=== PATIENT | female | born 1970 | race Caucasian/White ===

== ENCOUNTER → 2018-08-11 16:51 | Outpatient (CLI) | payer OTHER, SELFPAY ==
--- NOTE | 2018-08-11 16:53 | MRI_ITS ---
STUDY: MRI LEFT KNEE REASON FOR EXAM: Pain when kneeling, anterior mass. TECHNIQUE: Standardized fat and water weighted pulse sequences were obtained in all 3 orthogonal planes. COMPARISON: Radiographs 01/07/2016. FINDINGS: Normal medial meniscus. Normal hyaline cartilage of the medial femorotibial compartment. Normal medial femoral condyle and tibial plateau. Normal medial collateral ligamentous complex (MCL). Normal distal semimembranosus, gracilis and semitendinosus tendons. Normal lateral meniscus. Normal hyaline cartilage of the lateral femorotibial compartment. Normal lateral femoral condyle and tibial plateau. Normal proximal tibiofibular articulation. Normal lateral collateral (fibular) ligament. Normal popliteus tendon. Normal biceps femoris tendon. Normal anterior cruciate ligament (ACL). Normal posterior cruciate ligament (PCL). Normal congruent patellofemoral articulation. Normal hyaline cartilage of the patellofemoral compartment. There is a subchondral cyst of the lateral patellar facet (T2 axial image 11). Normal medial and lateral patellar retinaculum. Normal quadriceps tendon. Normal patellar tendon. Normal Hoffa's fat pad. There is no joint effusion. There is a well-defined soft tissue mass at the anterolateral aspect of the distal patellar tendon measuring 0.5 x 1.7 x 2.3 cm (AP x transverse x length). The mass is moderately hyperintense on T2 sequences (T2 coronal images 24, 25; T2 axial images 18-20; T2 sagittal images 15-17) and mildly hyperintense on proton density sequences (proton-density sagittal images 26-29) without specific imaging characteristics. The otherwise visualized osseous structures are unremarkable. MRI/Lower Ext Joint Only (Routine) IMPRESSION: Well-defined soft tissue mass superficial to the distal patellar tendon without specific imaging characteristics. Electronically Signed: Floyd Baez MD at 9:10 EDT Tel , Service support ,
== END ==
PROVIDERS: Family Provider Internal Medicine; PCP Internal Medicine; Visit Provider Orthopaedic Surgery
DX: M23.007 Cystic meniscus, unspecified meniscus, left knee (principal)
CPT/HCPCS: 73721

== ENCOUNTER 2018-09-23 13:38 | Day surgery (SDC) | payer OTHER, SELFPAY ==
--- NOTE | 2018-09-23 | IMM_PTH ---
PATIENT: JAIR STUART LOC: [facility] [place] U#:[id number] AGE/SX: 47/F ROOM: RE09/23/[address]: Dr. Sherrie Pratt DO : 1970 BED: DIS: 09/23/2018 SPEC #: [id number] RECD: 09/27/18 13:35 STATUS: TORRES REYola #: [id number] JOSE: 09/23/18 00:[address]: Sherrie Pratt DEPT: IMMUNOHISTOCHEMISTRY RECD BY: Oliva Woods ENTERED: 09/27/18 13:36 SP TYPE: IMMUNO OTHR DR: Dr. Jennie Pruett MD Tissues: Patella, NOS Procedures: DESMIN (initial) SMA (add) CD31 (add) CD34 (add) Vimentin (add) FACTOR VIII (add) PHYSICIAN & INSTITUTION [place] [id number] SPECIMEN INFORMATION: Tissue Source: Left patella hemorrhagic cyst Clinical Info: Left patella cyst Specimen Number: [id number] CPT code: 20116, 54326 x5 METHODOLOGY: Deparaffinized sections of prefer/formalin-fixed tissue or PAP/DQ stained slides are incubated with monoclonal/polyclonal antibodies/oligonucleotide probes. Localization is made via biotin free immunoperoxidase method. Appropriate controls are performed and reacted as expected. Results on target cell population are indicated in the following table: RESULTS: ANTIBODY / CLONE RESULT Actin (1A4) positive Desmin (CE-R-11) positive Vimentin (V9) positive CD31 (LINA/70A) positive ( in blood vessels) CD34 (QBEnd-10) positive ( in blood vessels) Factor VIII (R Ag) positive ( in blood vessels) These tests were developed and their performance characteristics determined by [facility]. They may not have been cleared or approved by the U.S. Food and Drug Administration. The FDA has determined that such clearance or approval is not necessary. INTERPRETATION: Left patella hemorrhagic cyst: Angioleiomyoma. SJ:jacoby 09/28/18 Case has been reviewed in consultation with Dr. Simpson who concurs with the above diagnosis. IDC:HARINI
[2018-09-23 14:02] VITALS: BP 114/65; PULSE 69; RESP 16; TEMP 37.8; O2SAT 100; BMI 20.7
[2018-09-23] MEDS: Cefazolin 2 GM in 0.9% Normal Saline 100 ML IV (15:00)
--- NOTE | 2018-09-23 15:00 | CYST_PTH ---
PATIENT: JAIR STUART LOC: [facility] [place] U#:[id number] AGE/SX: 47/F ROOM: RE09/23/[address]: Dr. Sherrie Pratt DO : 1970 BED: DIS: 09/23/2018 SPEC #: [id number] RECD: 09/26/18 08:17 STATUS: TORRES MONA #: [id number] JOSE: 09/23/18 15:[address]: Sherrie Pratt DEPT: SURGICAL PATHOLOGY RECD BY: Stefano Quinones ENTERED: 09/26/18 10:10 SP TYPE: Cyst OTHR DR: Dr. Jennie Pruett MD Tissues: Patella, NOS Procedures: Surgery Specimen Level IV HEADER OPERATION: Excision cyst patella PRE-OP DIAGNOSIS: Left patella cyst TISSUE SUBMITTED: Left patella hemorrhagic cyst MICROSCOPIC DIAGNOSIS Left patellar hemorrhagic cyst, biopsy: Consistent with angioleiomyoma. See comment. THANIA:jacoby 09/27/18 COMMENT Immunohistochemistry ([id number]) supports the above diagnosis. Case has been reviewed in consultation with Dr. Simpson who concurs with the above diagnosis. IDC:AM MICROSCOPIC DESCRIPTION Slides are reviewed. GROSS DESCRIPTION Received in fixative is one container labeled with the patient's name and designated left patellar hemorrhagic cyst. The specimen consists of a piece of naik nodule measuring 2 x 2 x 0.5 cm. The specimen is inked, serially sectioned and reveals naik solid cut surfaces. The entire specimen is submitted in one cassette. / SJ:jacoby 09/26/18 TC:1 CPT: 36954
--- NOTE | 2018-09-23 15:12 | PCM.DC.ORTHO ---
Discharge Diet: No Restrictions - may remove dressing and apply new dressings in 4 days, may get incision wet after pod4, wbat left leg, follow up in 2 wks for suture removal, call with concerns Discharge Activity: May Not Drive May shower in (days): 1 Ice area for (Minutes): 20 - Every hour while awake. Weight Bearing Status: Weight bearing as tolerated Keep extremity elevated above heart level: Operative Extremity Call your doctor if your incision/area has: Continuous Slow Oozing, Sudden Increased Bleeding, Increased Pain/ Swelling, Increased Redness, Foul Smelling Discharge Call your doctor if you observe: Fever of 101 or Higher, Coldness, Increased Pain, Numbness or Tingling, Change in Color, Calf discomfort Allergies/Adverse Reactions: Allergies meperidine [From Demerol] Adverse Reaction (Verified 09/08/18 12:26) Other MIGRANES Medications to take at Discharge Escitalopram Oxalate [Lexapro] 10 mg PO DAILY 09/08/18 Hydrocodone Bitart/Apap 5-325 [[place] 5MG-325MG] 1 - 2 tablet PO Q6H PRN PRN 5 Days #40 tablet 09/23/18 The following prescriptions were given: Hydrocodone Bitart/Apap 5-325 [[place] 5MG-325MG] 1 - 2 tablet PO Q6H PRN PRN 5 Days #40 tablet PRN Reason: Pain Primary Care Physician: Jennie Pruett MD [Primary Care Provider] - Test Results: Test results from this visit will be discussed in further detail at your follow-up appointment, if applicable. Please Follow Up With: Sherrie Pratt, DO - [phone]
--- NOTE | 2018-09-23 15:13 | OP.PCM_ITS ---
Report of Operation Date of Procedure: 09/23/18 Pre-Operative Diagnosis: left parapatellar anterior mass Post-Operative Diagnosis: same Surgery/Procedure Performed:: left parapatella hemorrhagic cyst excision foundry tender: Abe Mancini Type of Anesthesia:: General Anesthesiologist: Antwon Rey Specimen's removed: hemorrhagic cyst Estimated Blood Loss (mL): none Fluids Replaced: 500cc LR Description of Procedure: Preoperative note Patient is a 47-year-old female with a painful anterior mass which is going on for quite some time. We did an ultrasound and MRI confirming this looks like a cystic formation just anterior to patella tendon no aggressive features with the lesion. Risks benefits and alternatives surgery were discussed with patient. Risks include but not limited to blood loss, blood clot, infection, neurovascular injury, failure procedure, loss of life and loss of limb. Patient is aware would like to proceed with left anterior mass excision repair is indicated. Operative note Patient seen and examined preoperative holding area. Left knee was marked. Patient brought to the operating room and placed supine on the operating room table. Sign, anesthesia, antibiotics were administered. All bony prominences well-padded SCDs placed on her contralateral limb. The left leg was prepped and draped in usual sterile fashion with tourniquet around her upper thigh. We then marked out our incision for the palpable anterior cyst that is just distal to the inferior pole. We then elevated exsanguinated the leg and tourniquet was raised her pressure of 250 torr. Timeout was performed. We then used a 15 blade to cut through the skin directly on top of the cyst a little bit medial dislocation the patient would ever need a total knee in the future. We then dissected down with tenotomy syllable of the cyst. We then used a Bovie in maintaining hemostasis throughout the entire case to then retrieve the hemorrhagic cyst and it went in its entirety. There was no aggressive features that did not extend past or through the patella tendon there are no associated cysts or masses associated with this this 1 hemorrhagic cyst which was excessive was excised in its entirety. The mass measured about 2 x 1 cm. We sent to pathology for further evaluation. We then inspected again inspected the patella tendon and the other structures in that there is nothing for the left there was not we irrigated the the incision with copious amounts of sterile saline the garcia bcuticular layer was closed with 2-0 Vicryl and the skin was closed with running 4-0 Monocryl sterile dressings were applied. Tourniquet was deflated for total working time of 22 minutes. Patient tolerated procedure well there are no comp occasions transferred to recovery room in stable condition. Next Postoperative note Weight-bear as tolerated left leg next Call with increased pain numbness tingling or further issues arise Pharmacy has prescription Gas doing ankle pumps ice elevating and risk for blood clots and what to look for and to call if there is any concerns Dragon disclaimer this note was generated with [employer] dictation software. It may contain incorrect words, spelling, and punctuation that were not noted in checking the note before signing.
[2018-09-23] MEDS: Mupirocin Ointment 22gm Tube 1 APPLIC (15:40)
[2018-09-23 15:55] VITALS: BP 114/65; BP 132/86; PULSE 83; RESP 16; TEMP 36.4; O2SAT 100
[2018-09-23 16:00] VITALS: BP 114/65; BP 122/75; PULSE 83; RESP 16; O2SAT 100
[2018-09-23 16:15] VITALS: BP 114/65; BP 117/73; PULSE 79; RESP 16; TEMP 36.6; O2SAT 100
[2018-09-23] MEDS: HYDROcodone Bitartrate/Apap 5/325 Tablet PO (17:00)
[2018-09-23 17:51] VITALS: BP 105/67; BP 114/65; PULSE 82; RESP 18; TEMP 36.9; O2SAT 100
== END 2018-09-23 17:56 | disposition home or self-care (01) ==
LOC: SDC 13:38 → AC 13:39
PROVIDERS: Family Provider Internal Medicine; PCP Internal Medicine; Referring Provider Orthopaedic Surgery; Visit Provider Orthopaedic Surgery
PROC: (CPT 11402; principal; 2018-09-23 14:45)
DX: D36.7 Benign neoplasm of other specified sites (principal); F41.9 Anxiety disorder, unspecified; Z78.0 Asymptomatic menopausal state; Z79.899 Other long term (current) drug therapy
CPT/HCPCS: 11402; 12031; 88304; 88305; 88341; 88342; J7120; J2405

== ENCOUNTER → 2020-06-26 17:51 | Outpatient (CLI) | payer OTHER, SELFPAY | PROVIDERS: PCP Family Medicine; Referring Provider Family Medicine; Visit Provider Family Medicine | DX: U07.1 COVID-19 (principal); Z20.828 Contact with and (suspected) exposure to other viral communicable diseases | CPT/HCPCS: 87635; 94799; C9803; U0003 ==

== ENCOUNTER 2021-06-17 06:20 | Day surgery (SDC) | payer OTHER, SELFPAY ==
[2021-06-17] VITALS (8 sets, daily range): BP systolic 102–138; BP diastolic 31–90; PULSE 16–87; RESP 16–18; TEMP 36.1–36.9; O2SAT 100; BMI 19.8
[2021-06-17] MEDS: Lactated Ringers 1,000 ML 100 ML IV (06:35)
--- NOTE | 2021-06-17 06:46 | PCM.HP.STD ---
HPI - General HPI Narrative JAIR STUART, is a 50 F who presents for screening colonoscopy today. She has not had any previous ones. She denies any bright red blood per rectum or melena. She states she otherwise enjoys good health. She did get nauseated with placement of the IV. [facility] Medical History (Updated 06/17/21 @ 06:[address] Robert Snow MD) Anxiety Hx of cyst of breast Leg cramps Migraine headache Post-menopausal Wears contact lenses Wears glasses Home Medications escitalopram oxalate [Lexapro] 5 mg PO DAILY 09/08/18 [History Last Taken 09/22/18] Allergy/AdvReac Type Severity Reaction Status Date / Time meperidine [From Demerol] AdvReac Other Verified 06/17/21 06:34 Surgical History (Updated 06/13/21 @ 11:28 by Radha Morgan) h/o patellar cyst excision Hx of dilation and curettage Social History (Updated 11/07/18 @ 09:26 by Abe HUSTON, PA) Smoking Status: Never smoker ROS Constitutional Constitutional: Reports systems reviewed and no addt'l complaints, except as documented Cardiovascular Cardiovascular: Denies chest pain Respiratory/Chest Respiratory/Chest: Denies shortness of breath at rest Gastrointestinal Gastrointestinal: Denies abdominal pain, change in bowel habits, hematochezia or melena Physical Exam Const alert, oriented x3 and no apparent distress General Appearance: cooperative and comfortable Eyes General Eye: normal appearance of both eyes Neck General: normal visual inspection Chest inspection of chest normal Resp Effort and Inspection: able to speak in complete sentences and symmetric chest movement Auscultation: clear to auscultation bilaterally Cardio regular rate and regular rhythm GI soft to palpation, non-tender and non-distended Extremity no calf tenderness Neuro oriented x3 Psych thought process normal Assessment & Plan Assessment/Plan (1) Screening for intestinal cancer: PLAN: Plan to proceed with a screening colonoscopy with possible biopsy or polypectomy as indicated. She is aware of the technique, benefit, risk, alternatives. She has had an opportunity to ask and have questions answered. She presents via open access today. We will proceed as indicated. Robert Snow M.D., F.A.C.S.
[2021-06-17] MEDS: Ondansetron 4 MG/2 ML Vial (07:25)
[2021-06-17] MEDS: Midazolam 5 MG/ML Syringe (07:27)
[2021-06-17] MEDS: fentaNYL 100 MCG/2 ML Ampul ×2 (07:27→07:35)
--- NOTE | 2021-06-17 07:51 | OP.CCLET_ITS ---
06/17/2021 Jorge Elizondo Re : Colonoscopy procedure for Ana Paula Davis Dear Caro This procedure was performed on Thursday, June 17, 2021. My impressions and recommendations are as follows: Impressions : - Diverticulosis in the sigmoid colon and in the descending colon. - The examination was otherwise normal. - No specimens collected. Recommendations : - Discharge patient to home. - Resume previous diet. - Continue present medications. - Repeat colonoscopy in 10 years for screening purposes. My findings are described in the full procedure note, which is enclosed. If I can be of further assistance, please feel free to contact me at Doctor phone number(s): Work: . Sincerely, Robert Snow MD 06/17/2021 7:51:07 AM This report has been signed electronically.
--- NOTE | 2021-06-17 07:51 | OP.COLON_ITS ---
Patient Name: Ana Paula Davis Procedure Date: 06/17/2021 7:23 AM Date of : 1970 Age: 50 Procedure: Colonoscopy Indications: Screening for colorectal malignant neoplasm Providers: Robert Snow MD Medicines: Midazolam 4.5 mg IV, Fentanyl 150 micrograms IV, Ondansetron 4 mg IV Patient Profile: Last Colonoscopy: none. The patient's first colonoscopy is today. Complications: No immediate complications. Procedure: Pre-Anesthesia Assessment: - Prior to the procedure, a History and Physical was performed, and patient medications and allergies were reviewed. The patient's tolerance of previous anesthesia was also reviewed. The risks and benefits of the procedure and the sedation options and risks were discussed with the patient. All questions were answered, and informed consent was obtained. Prior Anticoagulants: The patient has taken no previous anticoagulant or antiplatelet agents. ASA Grade Assessment: I - A normal, healthy patient. After reviewing the risks and benefits, the patient was deemed in satisfactory condition to undergo the procedure. After I obtained informed consent, the scope was passed under direct vision. Throughout the procedure, the patient's blood pressure, pulse, and oxygen saturations were monitored continuously. The colonoscope was introduced through the anus and advanced to the cecum, identified by appendiceal orifice and ileocecal valve. The colonoscopy was somewhat difficult due to a tortuous colon. Successful completion of the procedure was aided by increasing the dose of sedation medication, changing the patient to a supine position and using manual pressure. The patient tolerated the procedure well. The quality of the bowel preparation was excellent. Moderate Sedation: Moderate (conscious) sedation was personally administered by the endoscopist. The following parameters were monitored: oxygen saturation, heart rate, blood pressure, and response to care. Total physician intraservice time was 15 minutes. Scope In: 7:31:13 AM Scope Withdrawal Time 0 hours 6 minutes 7 seconds Scope Out: 7:46:03 AM Total Procedure Duration Time 0 hours 14 minutes 50 seconds Findings: The perianal and digital rectal examinations were normal. Multiple diverticula were found in the sigmoid colon and descending colon. The exam was otherwise without abnormality. Impression: - Diverticulosis in the sigmoid colon and in the descending colon. - The examination was otherwise normal. - No specimens collected. Recommendation: - Discharge patient to home. - Resume previous diet. - Continue present medications. - Repeat colonoscopy in 10 years for screening purposes. Procedure Code(s): --- Professional --- 40346, Colonoscopy, flexible; diagnostic, including collection of specimen(s) by brushing or washing, when performed (separate procedure) 38480, 59, Moderate sedation services provided by the same physician or other qualified health assisted living care manager performing the diagnostic or therapeutic service that the sedation supports, requiring the presence of an independent trained observer to assist in the monitoring of the patient's level of consciousness and physiological status; initial 15 minutes of intraservice time, patient age 5 years or older CPT copyright 2017 [employer]. All rights reserved. The codes documented in this report are preliminary and upon vest tailor review may be revised to meet current compliance requirements. Robert Snow MD 06/17/2021 7:51:07 AM This report has been signed electronically. Number of Addenda: 0 Note Initiated On: 06/17/2021 7:23 AM
== END 2021-06-17 08:30 ==
LOC: EN 06:21 → AC 06:23
PROVIDERS: PCP Family Medicine; Referring Provider Family Medicine; Visit Provider Surgery
PROC: 0DJD8ZZ Inspection of Lower Intestinal Tract, Via Natural or Artificial Opening Endoscopic (ICD-10-PCS; CPT 45378; principal; 2021-06-17 07:25)
DX: Z12.11 Encounter for screening for malignant neoplasm of colon (principal); K57.30 Diverticulosis of large intestine without perforation or abscess without bleeding; F41.9 Anxiety disorder, unspecified; Z78.0 Asymptomatic menopausal state; Z79.899 Other long term (current) drug therapy
CPT/HCPCS: 45378; 99152; 99153; J7120; J2405

== ENCOUNTER 2021-07-01 20:07 | Emergency (ER) | payer OTHER, SELFPAY ==
[2021-06-17 06:51] VITALS: BMI 19.8
[2021-07-01 20:07] VITALS: BP 120/78; PULSE 92; RESP 18; TEMP 36.6; O2SAT 99; BMI 21.6
--- NOTE | 2021-07-01 20:20 | EX.ED.DYSGE1 ---
HPI History of Present Illness Chief Complaint: Lower Extremity Injury Informant: patient Onset/Context/Timing Onset: Today Current Severity: Mild Maximum Severity: Moderate Narrative Narrative: Patient presents after fall. Patient states she was on her front porch when her dog pulled her forward. She started to tumble forward. She missed the sidewalk but did hit her face against the grass. She had flip-flops on. She states her flip-flop on her right foot twisted and pulled and she now has significant pain of the top of her right foot and difficulty with weightbearing. She has some abrasions noted to her left knee and a swollen upper lip with a small laceration on the undersurface. Teeth feel stable. No headache or neck pain. She did take ibuprofen prior to arrival. [facility] Medical History Anxiety Hx of cyst of breast Leg cramps Migraine headache Post-menopausal Wears contact lenses Wears glasses Home Medications escitalopram oxalate [Lexapro] 5 mg PO DAILY 09/08/18 [History Last Taken 09/22/18] hydrocodone-acetaminophen 1 tab PO Q6H PRN 5 Days #20 tab 07/01/21 [Rx Last Taken Unknown] rizatriptan 10 mg PO X1 PRN 07/01/21 [History Last Taken Unknown] Allergy/AdvReac Type Severity Reaction Status Date / Time meperidine [From Demerol] AdvReac Other Verified 06/17/21 06:34 Surgical History h/o patellar cyst excision Hx of dilation and curettage Social History Smoking Status: Never smoker ROS ROS ED Constitutional Constitutional ED: Denies chills or fever(s) Eyes Eyes: Denies change in vision ENT ENT ED: Reports other Details: Upper lip pain. Teeth feel stable. ; Denies sore throat Cardiovascular Cardiovascular: Denies chest pain Respiratory/Chest Respiratory/Chest: Denies cough or dyspnea Gastrointestinal Gastrointestinal: Denies abdominal pain, diarrhea, nausea or vomiting Genitourinary Genitourinary ED: Denies dysuria Musculoskeletal Musculoskeletal: Reports arthralgias; Denies back pain or neck pain Integumentary Reports Abrasions; Denies rash Neurologic Neurologic: Denies headache(s) or weakness Psychiatric Psychiatric: Denies anxiety or depression Allergic/Immunologic Allergic/Immunologic ED: Denies urticaria EXAM Physical Exam Const Vital Signs: 07/01/21 20:07 07/01/21 20:15 Temperature 97.9 F Temperature Source Temporal Pulse Rate 92 Respiratory Rate 18 Respiratory Effort Normal Non-Labored Respiratory Depth Normal Respiratory Pattern Normal Blood Pressure 120/78 Blood Pressure Mean 92 Pulse Ox 99 Oxygen Delivery Method Room Air Room Air Positive well nourished and well developed General Appearance ED: well developed HEENT HEENT Narrative: Upper lip edema. Small, 4 mm superficial laceration on the undersurface of the upper lip. Teeth are stable. Eyes PERRL and EOMs intact bilaterally Neck supple Neck Narrative: No C-spine tenderness. Chest Wall inspection of chest normal and palpation of chest normal Resp normal respiratory effort and clear to auscultation bilaterally Cardio regular rate and regular rhythm GI normal to inspection, nondistended, normoactive bowel sounds and non-tender Palpation: soft Extremity Extremity Narrative: Tenderness palpation over the volar aspect of the right foot along the second, third, fourth, and fifth metatarsals. Increased pain with flexion and extension of the toes. She does have pain with passive flexion of the toes as well. Good cap refill. No tenderness over the ankle itself. No calf or knee tenderness. Superficial abrasions of the anterior left knee with no bony tenderness and full range of motion. Neuro oriented x3 Sensorium / Orientation: alert Psych mental status grossly normal Skin Skin Narrative: As above MDM MDM MDM Narrative Medical decision making narrative: Right foot x-rays are obtained. Patient initially declines anything for pain. Treatment and Re-Evaluation Comments:: Right foot x-ray per my interpretation reveals fractures across the second, third, and fourth metatarsals. X-ray reviewed with patient and at bedside. Posterior splint placed. Following splint application patient has good cap refill and sensation in her toes. She will be given crutches and made to be nonweightbearing. She is given [place] at this time with a prescription for the same. She will be given referral to Dr. Ortiz. Discharge Plan Triage Chief Complaint: Lower Extremity Injury ED Provider: Leslie Hernandez Dx/Rx/DC Orders Clinical Impression: Foot fracture, right Instructions: ED Fracture, Foot Prescriptions: New hydrocodone-acetaminophen 5-325 mg tablet 1 tab PO Q6H PRN (Reason: pain) 5 Days Qty: 20 RF: 0 No Action escitalopram oxalate [Lexapro] 10 MG tablet 5 mg PO DAILY RF: 0 rizatriptan 10 mg tablet 10 mg PO X1 PRN (Reason: Migraine Headache) RF: 0 Primary Care Provider: Jorge Elizondo Referrals: Jose R Ortiz DO [STAFF PHYSICIAN] - 3-5 Days Jorge Elizondo MD [Primary Care Provider] - Disposition Disposition: Home, Self Care
--- NOTE | 2021-07-01 20:24 | RAD_ITS ---
HISTORY: Trauma, foot injury EXAMINATION/TECHNIQUE: XR Foot Min 3 Views: COMPARISON: None FINDINGS: BONES/JOINTS: Mildly displaced and angulated fracture of the distal second metatarsal. Comminuted and moderately displaced fractures of the distal third and fourth metatarsals, overall alignment near anatomic. Preservation of the joint spaces. No sclerotic or destructive changes observed. SOFT TISSUES: Mild forefoot swelling. No radiopaque foreign body. RAD/Foot min 3 Views IMPRESSION: Fractures of the distal second, third and fourth metatarsal. at 2051 Reported and signed by: Yobani Lee MD Electronically Signed: Yobani Lee MD at 20:49 EDT Tel , Service support ,
[2021-07-01] MEDS: HYDROcodone Bitartrate/Apap 5/325 Tablet PO (20:43)
== END 2021-07-01 21:27 | disposition home or self-care (01) ==
PROVIDERS: Emergency Provider Emergency Medicine; PCP Family Medicine
DX: S92.321A Displaced fracture of second metatarsal bone, right foot, initial encounter for closed fracture (principal); S92.331A Displaced fracture of third metatarsal bone, right foot, initial encounter for closed fracture; S92.341A Displaced fracture of fourth metatarsal bone, right foot, initial encounter for closed fracture; S01.511A Laceration without foreign body of lip, initial encounter; S80.212A Abrasion, left knee, initial encounter; Z79.899 Other long term (current) drug therapy; W17.89XA Other fall from one level to another, initial encounter; Y93.K1 Activity, walking an animal; Y92.008 Other place in unspecified non-institutional (private) residence as the place of occurrence of the external cause; Y99.9 Unspecified external cause status; G43.909 Migraine, unspecified, not intractable, without status migrainosus; F41.9 Anxiety disorder, unspecified; Z78.0 Asymptomatic menopausal state
CPT/HCPCS: 29515; 73630; 99284

== ENCOUNTER 2021-11-18 10:00 | Outpatient (RCR) | payer OTHER, SELFPAY ==
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
--- NOTE | 2021-11-18 10:24 | HP.PTDCSUM ---
It has been my pleasure to treat JAIR STUART referred by Dr. Wilian Giron DPM, with the diagnosis of R metatarsal fracture. for a total of 9 visit(s). Discharge Date: 11/18/21 Please see the following information for a summary of their discharge status. Subjective: Im walking better. Walking more normal and moving foot naturally. Not a lot of pain. Only with quick stops or stepping back sharp trasnient pain. Sleep is OK. Stairs are Ok but don't feel normal . Doing exercises at home. To doctor on 11/27. ready to do ex at home. R foot Pain Intensity (Out of 10): 0 % Improvement: 75 Objective/Function: 0 Df Ris similar to L as is other ROM in ankles. Walking is normal, steps appear normal today and landing descending on forefoot with just a little discomfort. Strength in ankle 4+/5. Pt hesitant to walk dog at home but feels like she could. Wishes to continue via HEP vs more therapy now. Goal 1:: AROM R ankle full and without pain Goal Progress: Goal Met Goal 2:: Walks without antalgia community distances. Goal Progress: Goal Met Goal 3:: Steps reciprocal with deviations in gait. Goal Progress: Goal Met Goal 4:: I appropriate HEp to minimize future problems. Goal Progress: Goal Met Goal 5:: Walk dog wihtout problems Goal Progress: not yet. Plan: d/c to HEp If there are questions or concerns regarding this patient's physical therapy, please feel free to call me at [phone]. Thank you for the referral of this patient. Sincerely, Jack Kapoor, DPT, OCS, CSCS Balance/Gait/Functional tests - Balance/Special Test Scores Functional Gait Assessment Score: 27 % Disability: 10.0000 Lower Extremity Functional Score: 69
== END 2021-11-18 19:00 | disposition home or self-care (01) ==
LOC: PT 10:00
PROVIDERS: PCP Family Medicine; Referring Provider Student in an Organized Health Care Education/Training Program; Visit Provider Student in an Organized Health Care Education/Training Program
DX: S92.301D Fracture of unspecified metatarsal bone(s), right foot, subsequent encounter for fracture with routine healing (principal)
CPT/HCPCS: 97110; 97140; 97161; 97164

== ENCOUNTER → 2023-07-05 | Outpatient (CLI) | payer OTHER, SELFPAY ==
--- NOTE | 2023-07-05 14:36 | RAD_ITS ---
STUDY: X-RAY CHEST REASON FOR EXAM: Female, 52 years old. SOB/ FAM HISTORY OF LUNG CANCER TECHNIQUE: PA and lateral views of the chest. COMPARISON: None. FINDINGS: There is hyperinflation of the lungs. There is no demonstrated pleural abnormality. Normal size heart. Normal mediastinum and sepideh. Normal visualized pulmonary arteries. Normal visualized aortic arch and descending thoracic aorta. There are diffuse degenerative changes of the visualized thoracic spine. Normal visualized ribs, clavicles, and shoulders. There is no demonstrated abnormality of the visualized soft tissue structures of the upper abdomen. RAD/Chest PA and Lateral IMPRESSION: Nonspecific hyperinflation of the lungs without evidence of focal infiltrate. Electronically Signed: Alecia Ortiz MD at 5:41 EDT ,
--- NOTE | 2023-07-05 14:36 | RAD_ITS ---
INDICATION: PAIN EXAMINATION/TECHNIQUE: X-RAY - LEFT XR Knee Complete 4 Views or More 4 VIEWS COMPARISON: FINDINGS: BONES: No fracture demonstrated. JOINTS: No dislocation. SOFT TISSUES: Unremarkable. RAD/Knee 4 or More Views IMPRESSION: Unremarkable study. Electronically Signed: Odette Molina MD at 6:32 EDT ,
--- NOTE | 2023-07-05 14:36 | RAD_ITS ---
INDICATION: PAIN EXAMINATION/TECHNIQUE: X-RAY - RIGHT XR Knee Complete 4 Views or More 4 VIEWS COMPARISON: No prior examinations are available for comparison. FINDINGS: SOFT TISSUES: No soft tissue swelling or gas. No radiopaque foreign body. BONES/JOINTS: No acute fracture or subluxation.. Normal alignment. Preservation of the joint space.. No sclerotic or destructive changes observed. RAD/Knee 4 or More Views IMPRESSION: Unremarkable examination. Electronically Signed: Kadeem Arrieta MD at 8:11 EDT ,
== END | disposition home or self-care (01) ==
LOC: MTRAD 14:33
PROVIDERS: PCP Nurse Practitioner Family; Referring Provider Nurse Practitioner Family; Visit Provider Nurse Practitioner Family
DX: R06.02 Shortness of breath (principal); Z80.1 Family history of malignant neoplasm of trachea, bronchus and lung; M25.561 Pain in right knee; M25.562 Pain in left knee
CPT/HCPCS: 71046; 73564

== ENCOUNTER → 2023-10-25 | Outpatient (CLI) | payer OTHER, SELFPAY ==
[2023-10-25 12:51] LABS: Absolute Lymphocyte Count 2.03 X10^3/uL (0.83-4.51); Absolute Neutrophil Count 2.3 X10^3/uL (2.0-7.7); Basophil# 0.06 X10^3/uL; Basophil% 1.1 % (0-1); Eosinophil# 0.21 X10^3/uL; Hematocrit 39.4 % (37-47); Hemoglobin 12.7 g/dL (12.0-15.0); Lymphocyte # 2.03 X10^3/ul (0.83-4.51); Lymphocyte % 38.4 % (19-41); Mean Corp Hgb Conc 32.2 g/dL (32-36); Mean Corpuscular Hgb 29.5 pg (27.0-32.0); Mean Corpuscular Volume 91.4 fL (81-99); Monocyte# 0.63 X10^3/uL; Monocyte% 11.9 % (0-10); NRBC Flagged by Analyzer 0 % (0-5); Neutrophil # 2.34 X10^3/uL (2.7-7.7); Neutrophil % 44.4 % (47-70); Platelet Count 270 K/mm3 (150-450); RBC Distribution Width CV 12.4 % (11.6-14.6); RBC Distribution Width SD 41.5 fl (35.1-43.9); Red Blood Count 4.31 M/mm3 (4.2-5.4); White Blood Count 5.3 K/mm3 (4.4-11.0)
[2023-10-25 13:06] LABS: ALB/GLOB Ratio 1.1 RATIO (0.9-2.4); AST(SGOT) 19 U/L (15-37); Alanine Aminotransfer ALT/SGPT 17 U/L (13-56); Alkaline Phosphatase 66 U/L (45-117); Anion Gap 6 (5-15); BUN 13 mg/dL (7-18); BUN/Creat Ratio 15.5 RATIO (10-20); Calcium,Total 9.2 mg/dL (8.5-10.1); Chloride 106 mmol/L (98-107); Cholesterol 181 mg/dL (200); Creatinine, Serum 0.84 mg/dL (0.55-1.02); EST Glomerular Filtration Rate 75 mL/min (>60); Est Glom Filt Rate - Afr Amer 91 mL/min (>60); Globulin 3.5 g/dL (2.2-4.2); Glucose 89 mg/dL (74-106); High Density Lipoprotein 74 mg/dL; Potassium 4.1 mmol/L (3.5-5.1); Protein, Total 7.5 g/dL (6.4-8.2); Sodium Level 140 mmol/L (136-145); Triglycerides 62 mg/dL; Very Low Density Lipoprotein 12 mg/dL (5-40)
== END | disposition home or self-care (01) ==
LOC: BFHLAB 08:40
PROVIDERS: PCP Nurse Practitioner Family; Visit Provider Nurse Practitioner Family
DX: Z00.00 Encounter for general adult medical examination without abnormal findings (principal)
CPT/HCPCS: 36415; 80053; 80061; 85025